=== PATIENT | male | born 1995 ===

== ENCOUNTER 2017-12-14 23:57 | Emergency (ER) | payer OTHER ==
[2017-12-15 00:05] VITALS: BP 153/90; PULSE 75; TEMP 99.6; O2SAT 100
--- NOTE | 2017-12-15 00:14 | C.PDOC ---
History Of Present Illness 22-year-old male presents to to the ED with complaints of rash to the bilateral arms, worsening over the past 3 days. Patient reports the rash has spread to his abdomen, back, and posterior neck. He describes the rash as somewhat itchy, not painful. Otherwise patient denies any fever, chills, throat swelling, or shortness of breath. No known sick contacts. Patient admits to spending time walking around in the sun. Time Seen by Provider: 12/15/17 00:07 Chief Complaint (Nursing): Abnormal Skin Integrity History Per: Patient History/Exam Limitations: no limitations Onset/Duration Of Symptoms: Days Current Symptoms Are (Timing): Still Present Quality Of Symptoms: Itching. denies: Painful Past Medical History Reviewed: Historical Data, Nursing Documentation, Vital Signs Vital Signs: Last Vital Signs Temp 99.6 F 12/15/17 00:03 Pulse 75 12/15/17 00:03 Resp 20 12/15/17 00:48 BP 153/90 H 12/15/17 00:03 Pulse Ox 100 12/15/17 00:28 - Medical History PMH: Asthma Surgical History: No Surg Hx Family History: States: No Known Family Hx - Social History Hx Tobacco Use: No Hx Alcohol Use: No Hx Substance Use: No - Immunization History Hx Tetanus Toxoid Vaccination: No Hx Influenza Vaccination: Yes Hx Pneumococcal Vaccination: No Review Of Systems Except As Marked, All Systems Reviewed And Found Negative. Constitutional: Negative for: Fever, Chills ENT: Negative for: Throat Swelling Respiratory: Negative for: Shortness of Breath Skin: Positive for: Rash Physical Exam - Physical Exam Appears: Well, Non-toxic, No Acute Distress Skin: Warm, Dry, Rash (fine erythematous papular rash to the upper extremities and torso; no vesicles, scaling, flaking, or petechiae) Head: Atraumatic, Normacephalic Eye(s): bilateral: Normal Inspection Oral Mucosa: Moist Neck: Normal ROM Chest: Symmetrical Cardiovascular: Rhythm Regular, No Murmur Respiratory: Normal Breath Sounds, No Wheezing Extremity: Bilateral: Atraumatic, Normal ROM Pulses: Left Radial: Normal, Right Radial: Normal Neurological/Psych: Oriented x3, Normal Speech Gait: Steady ED Course And Treatment O2 Sat by Pulse Oximetry: 100 (RA) Pulse Ox Interpretation: Normal Medical Decision Making Medical Decision Making: Impression: Rash Plan: Patient will be discharged home with prescription for Atarax. Advised to follow up with the clinic for further evaluation or return to the ER for new or worsening symptoms. There is agreement to discharge plan. Disposition Counseled Patient/Family Regarding: Diagnosis, Need For Followup, Rx Given - Disposition Referrals: [facility] [Outside] [facility] [Outside] Disposition: HOME/ ROUTINE Disposition Time: 00:13 Condition: GOOD Additional Instructions: Rx sent to [facility] pharmacy Take medicine as needed for itching and rash Prescriptions: hydrOXYzine HCl [Atarax] 25 mg PO Q6H #30 tab Instructions: Skin Rash (DC) Forms: [employer] (Slovak) - POA Present On Arrival: None - Clinical Impression Clinical Impression: Rash and nonspecific skin eruption - PA / [employer] / Resident Statement MD/DO has reviewed & agrees with the documentation as recorded. - Scribe Statement The provider has reviewed the documentation as recorded by the Scribe (Janneth Valdez) All medical record entries made by the Scribe were at my direction and personally dictated by me. I have reviewed the chart and agree that the record accurately reflects my personal performance of the history, physical exam, medical decision making, and the department course for this patient. I have also personally directed, reviewed, and agree with the discharge instructions and disposition.
[2017-12-15 00:48] VITALS: RESP 20
== END 2017-12-15 00:48 | disposition home or self-care (01) ==
LOC: C.ER 23:57 → SUPCPDRO 23:57 → C.ER 12-15 00:48
DX: R21 Rash and other nonspecific skin eruption (principal)